=== PATIENT | female | born 1980 | race African-American/Black ===

== ENCOUNTER 2017-10-18 23:00 | Emergency (ER) | payer OTHER ==
[2017-10-19 22:25] LABS: Chlamydia by PCR Not Detected (NotDetected); GC by PCR Not Detected (NotDetected)
== END 2017-10-18 23:55 | disposition home or self-care (01) ==
LOC: SCSER 23:00
DX: J06.9 Acute upper respiratory infection, unspecified (principal); F17.210 Nicotine dependence, cigarettes, uncomplicated
CPT/HCPCS: 87081; 87430; 87480; 87491; 87510; 87591; 87660; 99283